=== PATIENT | male | born 1995 | race Caucasian/White ===

== ENCOUNTER 2017-09-03 17:58 | Emergency (ER) | payer BC ==
[~2017-09-03] VITALS: Ht 193 cm; Wt 122.5 kg
[2017-09-03 17:58] VITALS: BP 140/93
== END 2017-09-03 18:36 | disposition home or self-care (01) ==
LOC: ER 18:03
DX: S06.0X0A Concussion without loss of consciousness, initial encounter (principal); M54.5 Low back pain; V43.52XA Car driver injured in collision with other type car in traffic accident, initial encounter; Y93.89 Activity, other specified; Y92.410 Unspecified street and highway as the place of occurrence of the external cause; Y99.8 Other external cause status
CPT/HCPCS: 99282; A4606; Z7610